=== PATIENT | male | born 1955 | race Two or more races ===

== ENCOUNTER 2018-06-22 03:38 | Inpatient (IN) | payer OTHER, BC ==
[2018-06-22] VITALS (8 sets, daily range): BP systolic 98–179; BP diastolic 58–107
[~2018-06-22] VITALS: Ht 172.7 cm; Wt 76.5 kg
[2018-06-22] MEDS ORDERED: ALBUTEROL SULF 2.5 MG/0.5ML(0.5%) NEB SOLN NEB ONE (03:45)
[2018-06-22] MEDS ORDERED: SODIUM CHLORIDE 0.9% 1,000 ML IV ONE (03:45)
[2018-06-22] MEDS ORDERED: IPRATROPIUM BROM 0.5 MG/2.5ML INH SOL NEB ONE (03:45)
[2018-06-22] MEDS ORDERED: methylPREDNISolone SOD SUCC 125 MG/2 ML VL IV ONE ×2 (03:45→09:15)
[2018-06-22 04:31] LABS: Basophils # (auto) 0.1 uL; Basophils % (auto) 0.4 % (0.0-2.0); Eosinophils # (auto) 0 uL; Hematocrit 45.8 % (41.0-53.0); Hemoglobin 15.3 g/dL (13.5-17.5); Lymphocytes # (auto) 0.4 uL; Lymphocytes % (auto) 2.9 % (10.0-50.0); Mean Corpuscular Hgb Conc. 33.4 g/dL (32.0-36.0); Mean Corpuscular Volume 92.8 fL (80.0-100.0); Monocytes # (auto) 1.5 uL; Neutrophils # (auto) 12.6 uL; Neutrophils % (auto) 86.7 % (37.0-80.0); Platelet Count (auto) 85 10^3/uL (140-450); Red Blood Cells 4.94 10^6/uL (4.5-5.90); Red Cell Distribution Width 14.2 % (11.8-14.3); White Blood Cell 14.6 10^3/uL (4.4-10.8)
[2018-06-22 04:35] LABS: Albumin 3.1 g/dL (3.4-5.0); Anion Gap 15 (5-15); Blood Urea Nitrogen 40 mg/dL (7-18); Carbon Dioxide 18 mmol/L (21-32); Chloride 101 mmol/L (98-107); Glucose 138 mg/dL (74-106); Potassium 3.9 mmol/L (3.5-5.1); Sodium 134 mmol/L (136-145)
[2018-06-22 04:41] LABS: Alanine Aminotransferase 30 U/L (16-61); Alkaline Phosphatase 170 U/L (45-117); Aspartate Aminotransferase 35 U/L (15-37); BUN/Creatinine Ratio 21.1; Bilirubin, Total 1.7 mg/dL (0.2-1.0); GFR African American 47 mL/min; GFR Non-African American 38 mL/min; Total Protein 7.1 g/dL (6.4-8.2)
[2018-06-22] MEDS ORDERED: ALBUTEROL SULF 2.5 MG/0.5ML(0.5%) NEB SOLN NEB PRN (06:30)
[2018-06-22] MEDS ORDERED: HYDROcodone-ACET 5/325MG TAB PO PRN (06:30)
[2018-06-22] MEDS ORDERED: TEMAZEPAM 15 MG CAP PO PRN (06:30)
[2018-06-22] MEDS ORDERED: cefTRIAXone 1GM/50ML D5W 50 ML IV ONE (06:30)
[2018-06-22] MEDS ORDERED: guaiFENesin-DM 100/10mg/5ml SYR PO PRN (06:30)
[2018-06-22] MEDS ORDERED: OSELTAMIVIR 75 MG CAP PO ONE (06:30)
[2018-06-22] MEDS ORDERED: ACETAMINOPHEN 325 MG TAB PO PRN (06:30)
[2018-06-22] MEDS ORDERED: DEXTROSE (50%) 50ML SYRG IV PRN (06:30)
[2018-06-22] MEDS ORDERED: AZITHROMYCIN 500MG/ 250ML 250 ML IV ONE (07:30)
[2018-06-22 08:00] LABS: Lactic Acid w/Reflex 4.2 mmol/L (0.4-2.0)
[2018-06-22] MEDS ORDERED: IPRATROPIUM BROM 0.5 MG/2.5ML INH SOL NEB PRN (09:15)
[2018-06-22] MEDS ORDERED: LORazepam 2MG/ML-1ML VIAL ONE (09:51)
[2018-06-22] MEDS: methylPREDNISolone SOD SUCC 125 MG/2 ML VL IV SCH ×2 (10:00→22:09)
[2018-06-22] MEDS ORDERED: LISINOPRIL 5 MG TAB PO SCH (10:00)
[2018-06-22] MEDS ORDERED: LEVOFLOXACIN 500MG 100 ML IV ONE (10:00)
[2018-06-22] MEDS ORDERED: HCTZ 25 MG TAB PO SCH (10:00)
[2018-06-22] MEDS ORDERED: PANTOPRAZOLE 40 MG TAB PO SCH (10:00)
[2018-06-22] MEDS ORDERED: ETOMIDATE (2MG/ML) 20ML VIAL IV ONE (10:02)
[2018-06-22] MEDS: NOREPINEPHRINE 8 MG/250ML KIT 250 ML IV SCH (10:02)
[2018-06-22] MEDS ORDERED: SUCCINYLCHOLINE CHLORIDE 20 MG/ML 10ML VIAL IV ONE (10:02)
[2018-06-22] MEDS ORDERED: MIDAZOLAM DRIP 50 mg/50mL 50 ML IV ONE (10:06)
--- NOTE | 2018-06-22 10:10 | NUR ---
Respiratory note: PATIENT WAS INTUBATED AT 1006 FOR AIRWAY PROTECTION AND INCREASED WORK OF BREATHING. PLACED PATIENT ON VENTILATOR AC 16/600/+5/50% PER DR. BENTON. PATIENT WAS INTUBATED WITH AN 8.0 AND SECURED AT 24 CM AT THE LIP VIA DUANE. ABG TO BE DRAWN IN ONE HOUR AND SPUTUM SAMPLE TO BE COLLECTED. WILL CONTINUE TO MONITOR PATIENT.
[2018-06-22] MEDS: MIDAZOLAM DRIP 50 mg/50mL 50 ML IV SCH ×2 (10:25→13:33)
[2018-06-22] MEDS: PROPOFOL 100 ML IV SCH ×3 (10:25→17:04)
[2018-06-22 11:17] LABS: Urine Bacteria FEW /hpf (None Seen); Urine Blood 1+ /uL (Negative); Urine Mucus FEW (None Seen); Urine Specific Gravity 1.015 (1.001-1.035); Urine WBC 9 /hpf (0 - 3)
[2018-06-22] MEDS ORDERED: fentaNYL Drip 2500mCg/250mlNS 250 ML IV ONE (11:23)
[2018-06-22] MEDS: fentaNYL Drip 2500mCg/250mlNS 250 ML IV SCH (11:38)
[2018-06-22] MEDS: InsuLIN REG 1unit/0.01ml Soln (100units/ml) SC SCH ×2 (11:41→16:47)
[2018-06-22] MEDS: ACCU-CHEK COMFORT CURVE STRIP VI SCH ×3 (11:41→23:56)
[2018-06-22] MEDS ORDERED: OSELTAMIVIR 30MG/2ML ORAL SUSP NG SCH (11:48)
[2018-06-22] MEDS ORDERED: ALBUTEROL SULF 2.5 MG/0.5ML(0.5%) NEB SOLN NEB SCH (12:00)
[2018-06-22] MEDS ORDERED: IPRATROPIUM BROM 0.5 MG/2.5ML INH SOL NEB SCH (12:00)
[2018-06-22] MEDS ORDERED: SODIUM BICARBONATE 8.4 % INJ 50ML VIAL IV ONE (13:00)
--- NOTE | 2018-06-22 13:00 | NUR ---
Respiratory note: SPOKE TO DR. OSMAN IN REGARDS TO ABG POST VENTILATOR CHANGES. PER DR. OSMAN KEEP PATIENT SPO2 ABOVE 92%. I TITRATED PATIENT'S FIO2 TO 60%. WILL CONTINUE TO MONITOR PATIENT.
[2018-06-22] MEDS: IPRATROPIUM BROM 0.5 MG/2.5ML INH SOL NEB SCH ×3 (15:45→21:52)
[2018-06-22] MEDS: ALBUTEROL SULF 2.5 MG/0.5ML(0.5%) NEB SOLN NEB SCH ×3 (15:45→21:52)
[2018-06-22] MEDS ORDERED: ACETAMINOPHEN 650 mg PER 20 mL UD GT PRN (16:00)
[2018-06-22] MEDS ORDERED: OSELTAMIVIR 30 MG CAP PO SCH (22:00)
[2018-06-23] VITALS (24 sets, daily range): BP systolic 88–119; BP diastolic 45–80
[2018-06-23] MEDS: InsuLIN REG 1unit/0.01ml Soln (100units/ml) SC SCH ×4 (00:16→18:13)
[2018-06-23 05:54] LABS: Albumin 2.6 g/dL (3.4-5.0); Calcium 8.9 mg/dL (8.5-10.1); Potassium 3.9 mmol/L (3.5-5.1)
[2018-06-23 06:00] LABS: BUN/Creatinine Ratio 35.6; Bilirubin, Total 1.1 mg/dL (0.2-1.0); Total Protein 6.8 g/dL (6.4-8.2)
[2018-06-23] MEDS: ACCU-CHEK COMFORT CURVE STRIP VI SCH ×3 (06:00→18:10)
[2018-06-23 06:03] LABS: INR 0.94 (0.9-1.15); Partial Thromboplastin Time 34.6 sec (23.78-33.04); Prothrombin Time 10.1 sec (9.27-12.13)
[2018-06-23 06:08] LABS: Basophils # (auto) 0 uL; Basophils % (auto) 0.1 % (0.0-2.0); Eosinophils # (auto) 0 uL; Hematocrit 40.5 % (41.0-53.0); Hemoglobin 13.4 g/dL (13.5-17.5); Lymphocytes # (auto) 0.3 uL; Lymphocytes % (auto) 2.1 % (10.0-50.0); Mean Corpuscular Hemoglobin 30.7 pg (28.0-32.0); Mean Corpuscular Hgb Conc. 33.1 g/dL (32.0-36.0); Mean Corpuscular Volume 92.7 fL (80.0-100.0); Monocytes # (auto) 0.7 uL; Monocytes % (auto) 4.9 % (0.0-12.0); Neutrophils # (auto) 12.6 uL; Neutrophils % (auto) 92.9 % (37.0-80.0); Platelet Count (auto) 131 10^3/uL (140-450); Red Blood Cells 4.37 10^6/uL (4.5-5.90); Red Cell Distribution Width 14.2 % (11.8-14.3); White Blood Cell 13.6 10^3/uL (4.4-10.8)
[2018-06-23] MEDS: ALBUTEROL SULF 2.5 MG/0.5ML(0.5%) NEB SOLN NEB SCH ×5 (07:10→22:30)
[2018-06-23] MEDS: IPRATROPIUM BROM 0.5 MG/2.5ML INH SOL NEB SCH ×5 (07:10→22:30)
[2018-06-23] MEDS: PANTOPRAZOLE 40 MG/10 ML VIAL IV SCH (09:07)
[2018-06-23] MEDS: methylPREDNISolone SOD SUCC 125 MG/2 ML VL IV SCH ×2 (09:07→22:00)
[2018-06-23] MEDS: OSELTAMIVIR 30MG/2ML ORAL SUSP NG SCH ×2 (09:44→22:00)
[2018-06-23] MEDS ORDERED: LEVOFLOXACIN 250MG 50 ML IV SCH (10:00)
[2018-06-23] MEDS: NOREPINEPHRINE 8 MG/250ML KIT 250 ML IV SCH (10:10)
[2018-06-23] MEDS ORDERED: LEVOFLOXACIN 250MG 50 ML IV ONE (11:00)
[2018-06-23] MEDS: fentaNYL Drip 2500mCg/250mlNS 250 ML IV SCH (11:16)
--- NOTE | 2018-06-23 11:50 | NUR ---
WOUND CARE NOTE: Wound care in to see patient for skin integrity monitoring due to low Luis score of 12 and intubation status, putting patient to high risk for skin breakdown. Patient is 62 y/o male with admitting diagnosis of Pneumonia, Influenza. Patient is resting in hospital bed in ED Rm.#6. Patient is intubated, sedated and mechanically ventilated. Patient appears to be in no pain using Mota Valencia Faces Pain Scale. Skin assessment done with assistance of ED nurse, ALFONSO Elizabeth. No wound noted, no non-blanchable redness over bony prominences noted. Repositioned patient for comfort facing his Lt side, redistributed pressure points with pillows. Patient tolerated well. ALFONSO Elizabeth at bedside. RECOMMENDATION: BID/PRN cleaning and application of Barrier cream to sacrum/perineum as preventative per MD order, dietary consult for low Luis score , frequent turning and repositioning schedule as condition permits, redistribute pressure points with pillows,elevate heels on pillows, continue monitoring by wound care while patient is mechanically ventilated.
[2018-06-23] MEDS: PROPOFOL 100 ML IV SCH ×2 (13:20→21:00)
--- NOTE | 2018-06-23 19:45 | NUR ---
PATIENT ARRIVED FROM ER IN BED. ETT BAGGED. SLIDER BOARD USED TO PLACE PATIENT INTO AN ICU BED. EKG LEADS ON. BLOOD PRESSURE TAKEN. O2 SATURATION ATTACHED. HARMON IN DOWN DRAIN POSITION. ON DIPRIVAN AT 50 MCG/KG/MIN AND LEVOPHED AT 1 MCG/KG /MIN. NSR WITHOUT ECTOPY. BLOOD PRESSURE SYSTOLIC 91. O2 SATURATION 96. SMALL AMOUNT OF AIR PLACED IN CUFF. ON CONTACT ISOLATION: + FOR INFLUENZA A.
--- NOTE | 2018-06-23 21:00 | NUR ---
NOT MOVING EXTREMITIES. NO BLINK, GAG OR COUGH. DECREASING THE DIPRIVAN. PUPILS ARE 2 AND SLUGGISH. REPOSITIONED TO RIGHT SIDE. DAUGHTER AT BEDSIDE. SON IN LAW AT BEDSIDE. HARMON BAG: CLEAR YELLOW LIQUID. SEDIMENT LINES THE TUBING. NSR WITHOUT ECTOPY. B/P STABLE. HAD TO INCREASE THE LEVOPHED TO 2 MCG/MIN. ABDOMEN ROUND AND SOFT. NGT RESIDUAL CHECKED. 20CC OF A BROWN/RED LIQUID. NGT LEFT NARE. SUCTIONED ETT FOR NO SECRETIONS. ALL PULSES PALPABLE. FEET ARE WARM. SCDS ON.
--- NOTE | 2018-06-23 22:00 | NUR ---
TRIED MOVING THE DIPRIVAN TO 45 MCG, BUT HE STARTED DOUBLE STACKING HIS BREATHS. PUT HIM BACK ON 50 MCG. NSR WITHOUT ECTOPY. HARMON BAG HAS A LARGE AMOUNT OF URINE. IV SITE SHOWS NO REDNESS OR SWELLING. PULSES PALPABLE. EXTREMITIES WARM. LOW GRADE FEVER.
[2018-06-24] VITALS (99 sets, daily range): BP systolic 86–148; BP diastolic 54–89
--- NOTE | 2018-06-24 | NUR ---
FAMILY MEMBERS IN ROOM. THE DOUBLE STACKING IS MUCH LESS. ORDER NOTED FOR SIMV TODAY. OVERBREATHING THE VENTILATOR 2-3 BREATHS. SINUS RHYTHM WITHOUT ECTOPY. ABDOMEN SOFT. NGT RESIDUAL 70CC OF A BROWN/RED LIQUID. IVS SHOW NO REDNESS OR SWELLING.
[2018-06-24] MEDS: IPRATROPIUM BROM 0.5 MG/2.5ML INH SOL NEB SCH ×6 (02:00→22:21)
[2018-06-24] MEDS: ALBUTEROL SULF 2.5 MG/0.5ML(0.5%) NEB SOLN NEB SCH ×6 (02:00→22:22)
--- NOTE | 2018-06-24 02:00 | NUR ---
REPOSITIONED. NSR - ST WITHOUT ECTOPY. LOW GRADE FEVER. NO BLINK, GAG, OR COUGH. NO MOVEMENT OF EXTREMITIES.IV SHOWS NO REDNESS OR SWELLING.
--- NOTE | 2018-06-24 03:00 | NUR ---
LORENZA AND AM LABS DRAWN
--- NOTE | 2018-06-24 04:00 | NUR ---
NO BLINK, GAG, OR COUGH. PUPILS 2 AND REACT. ORALLY: A SMALL AMOUNT OF RED LIQUID.RIJ TLC IS CLEAN AND DRY. NO REDNESS OR SWELLING AT SITE. LUNGS CLEAR. NOTHING SUCTIONED FROM THE ETT ALL NIGHT. LEFT NARE NGT IS CLAMPED. RESIDUAL CHECKED AND IS STILL A BROWN /RED COLOR. ABDOMEN SOFT. NO BOWEL SOUNDS. NO BM. HARMON PUT OUT 1500CC. ALL PULSES STRONG AND PALPABLE. DOES NOT WITHDRAW TO PAINFUL STIMULI. NO SKIN ISSUES. TEMP IS DRIFTING DOWN TO NORMAL. FIO2 40% AFTER THE ABG RESULT.
[2018-06-24 04:15] LABS: Basophils # (auto) 0 uL; Eosinophils # (auto) 0 uL; Hematocrit 40.2 % (41.0-53.0); Hemoglobin 13.6 g/dL (13.5-17.5); Lymphocytes # (auto) 0.4 uL; Lymphocytes % (auto) 2.8 % (10.0-50.0); Mean Corpuscular Hemoglobin 31.3 pg (28.0-32.0); Mean Corpuscular Hgb Conc. 33.9 g/dL (32.0-36.0); Mean Corpuscular Volume 92.3 fL (80.0-100.0); Monocytes # (auto) 0.7 uL; Monocytes % (auto) 5.1 % (0.0-12.0); Neutrophils # (auto) 13.3 uL; Neutrophils % (auto) 92.1 % (37.0-80.0); Nucleated Red Blood Cells % 0.4 %; Platelet Count (auto) 148 10^3/uL (140-450); Red Blood Cells 4.36 10^6/uL (4.5-5.90); Red Cell Distribution Width 14.3 % (11.8-14.3); White Blood Cell 14.4 10^3/uL (4.4-10.8)
[2018-06-24 04:25] LABS: BUN/Creatinine Ratio 44.8; Calcium 8.8 mg/dL (8.5-10.1); Magnesium 3.1 mg/dL (1.6-2.6)
[2018-06-24] MEDS: InsuLIN REG 1unit/0.01ml Soln (100units/ml) SC SCH ×4 (06:03→18:11)
[2018-06-24] MEDS: ACCU-CHEK COMFORT CURVE STRIP VI SCH ×4 (06:03→17:57)
--- NOTE | 2018-06-24 06:07 | NUR ---
NO CHANGE IN STATUS.
[2018-06-24] MEDS: PROPOFOL 100 ML IV SCH ×3 (06:32→14:37)
--- NOTE | 2018-06-24 06:51 | NUR ---
PLACED ON SIMV. RR 20. DECREASED THE DIPRIVAN TO 45 MCG.
--- NOTE | 2018-06-24 07:30 | NUR ---
Opening Shift Note: Report received from Hoda HAMILTON. Assumed care of patient, intubated and sedated nixnovan 45mcg..on SIMV and if tolerating plan is to CPAP and titrate off sedation. No S/S of distress/SOB or pain. Instructed family on POC, will continue to monitor for changes Q1hr and PRN.
--- NOTE | 2018-06-24 09:00 | NUR ---
Family at bedside. Explained POC.
[2018-06-24] MEDS: PANTOPRAZOLE 40 MG/10 ML VIAL IV SCH (10:00)
[2018-06-24] MEDS: methylPREDNISolone SOD SUCC 125 MG/2 ML VL IV SCH ×2 (10:00→22:00)
[2018-06-24] MEDS ORDERED: LEVOFLOXACIN 500MG 100 ML IV SCH (10:00)
--- NOTE | 2018-06-24 10:30 | NUR ---
Endorsed care to ALFONSO Marquez.
--- NOTE | 2018-06-24 11:10 | NUR ---
NUTRITION CONSULT/ASSESSMENT NOTES Please refer to link notes of nutrition screen form filed under the intervention section of the plan of care for further details. Est. Needs: 1900 kcal to 2300 kcal (25-30 kcal/kgBW), 61 gms to 77 gms pro (0.8-1.0 gms/kgBW). Will continue to monitor pertinent labs and reassess nutrient need prn Thank you for this consult. Addendum: 06/24/18 at [address] Amended: Links added.
--- NOTE | 2018-06-24 11:15 | NUR ---
OPEN RECEIVED REPORT FROM NIGHT RN. ASSUMED CARE OF ICU PATIENT, FULL CODE STATUS. PATIENT SEDATED ON VENT. DIPRIVAN GTT INCREASED TO 45 MCG/KG/MIN AT THIS TIME DUE TO PATIENT HAVING FACIAL GRIMACING AT THIS TIME. PATIENT ON VENT SIMV MODE WITH FIO2 AT 40%. LEFT ONTIVEROS NGT CLAMPED AT THIS TIME, PLACEMENT VERIFIED. HARMON TO GRAVITY. SKIN INTACT TO SACRAL AREA, PINK BLANCHABLE. RECTAL TEMP. PROBE PLACED AT THIS TIME. CURRENT TEMP 100.8. COOLING MEASURES APPLIED TO PATIENT AT THIS TIME. SCD'S TO ROSIE LE. RIGHT IJ TLC PATENT AND FLUSHED AT THIS TIME. FAMILY AT BEDSIDE. UPDATED ON PT'S STATUS AND CURRENT POC. WILL CONTINUE TO TURN PATIENT Q2HRS AND PRN. OFF LOADING PRESSURE AREAS WITH PILLOWS. CONTINUE CARE.
[2018-06-24] MEDS: OSELTAMIVIR 30MG/2ML ORAL SUSP NG SCH ×2 (12:57→22:00)
[2018-06-24] MEDS: NOREPINEPHRINE 8 MG/250ML KIT 250 ML IV SCH (12:57)
[2018-06-24] MEDS: fentaNYL Drip 2500mCg/250mlNS 250 ML IV SCH (14:36)
[2018-06-24] MEDS: MIDAZOLAM DRIP 50 mg/50mL 50 ML IV SCH (14:36)
--- NOTE | 2018-06-24 19:56 | NUR ---
PT ADMITTED WITH THE FLU. ATTEMPTED BIPAP IN ER AND THEN INTUBATED THE PATIENT. PT IS CURRENTLY ON SIMV OF 12. DIPRIVAN IS AT 45MCG. NOW HAS A COUGH, GAG AND COUGH. NOTHING SUCTIONED FROM LUNGS AND YET THE CXR IS WORSE. ABDOMEN SOFT. NGT LEFT NARE IS CLAMPED. NPO. HARMON DRAINING RITA LIQUID TO DOWN DRAIN BAG. RIJ TLC, SITE IS CLEAN AND DRY WITH A CURRENT DRESSING. CONTINUES TO HAVE THE 20G IN THE RIGHT WRIST. ORDERS FOR TRANSFER TO [facility] SOON A BED BECOMES AVAILABLE. SCDS ON PATIENT.
--- NOTE | 2018-06-24 23:00 | NUR ---
[facility] CALLED WITH A BED ASSIGNMENT. DR ADONIS BRONSON CALLED FOR THE ORDER TO TRANSFER . ORDER RECEIVED AND PLACED IN COMPUTER. DAUGHTER GERARDO INFORMED AND SIGNED TRANSFER FORM. SON[facility] CALLED. ETA 0600. SUCTIONED ETT IN THE PATIENT FOR PINK TINGED SECRETIONS. SEDATION VACATION: PATIENT WOKE UP, MOVED ALL EXTREMITIES. OPENED EYES. HEART RATE 90. RR 32. PLACED PATIENT BACK ON SEDATION.
[2018-06-25] VITALS (34 sets, daily range): BP systolic 99–160; BP diastolic 67–101
--- NOTE | 2018-06-25 | NUR ---
PAPERWORK READY FOR TRANSPORT TO [facility]. ETA FOR THE AMB[facility]ANCE COMPANY : 0600. REPOSITIONED. ORAL CARE. SUCTIONED ETT FOR A SMALL AMOUNT OF PINK SECRETIONS. LUNGS CLEAR. ABDOMEN ROUND AND SOFT. URINE: DARK RITA WITH SEDIMENT. ALL PULSES PALPABLE. + GAG, COUGH AND BLINK. NSR WITHOUT ECTOPY. IV SHOWS NO REDNESS OR SWELLING
--- NOTE | 2018-06-25 02:00 | NUR ---
DAUGHTER HERE VISITING. AWARE OF TRANSFER AROUND 0600 TO [facility]. NSR WITHOUT ECTOPY. HR IN THE 60-70S. NO ECTOPY. REPOSITIONED TO HIS BACK. BOOSTED UP IN BED. ABDOMEN LARGE AND ROUND, SOFT. FLATUS. SUCTIONED ETT FOR A VERY SMALL AMOUNT OF PINK TINGED SECRETIONS. VSS.
[2018-06-25] MEDS: ALBUTEROL SULF 2.5 MG/0.5ML(0.5%) NEB SOLN NEB SCH ×2 (02:35→06:07)
[2018-06-25] MEDS: IPRATROPIUM BROM 0.5 MG/2.5ML INH SOL NEB SCH ×2 (02:35→06:07)
--- NOTE | 2018-06-25 03:21 | NUR ---
TURNED OFF LEVOPHED. SYSTOLIC HAS CONSISTENTLY BEEN 120-130. NO ORAL SECRETIONS. ORAL CARE DONE. AM LABS DRAWN.
[2018-06-25 03:51] LABS: Hematocrit 43.8 % (41.0-53.0); Hemoglobin 14.8 g/dL (13.5-17.5); Mean Corpuscular Hemoglobin 31.1 pg (28.0-32.0); Mean Corpuscular Hgb Conc. 33.7 g/dL (32.0-36.0); Mean Corpuscular Volume 92.3 fL (80.0-100.0); Platelet Count (auto) 103 10^3/uL (140-450); Red Blood Cells 4.74 10^6/uL (4.5-5.90); Red Cell Distribution Width 14.3 % (11.8-14.3)
--- NOTE | 2018-06-25 04:00 | NUR ---
ABG DONE. REPOSITIONED TO THE RIGHT SIDE. LUNGS CLEAR. JUST A VERY SMALL AMOUNT OF PINK TINGED SECRETIONS FROM ETT. NO ORAL SECRETIONS. NGT RESIDUAL 5CC OF COFFEE GROUND. ABDOMEN LARGE, ROUND, SOFT. NO PERIPHERAL EDEMA
[2018-06-25 04:12] LABS: Calcium 8.7 mg/dL (8.5-10.1); Magnesium 2.7 mg/dL (1.6-2.6); Potassium 4.2 mmol/L (3.5-5.1)
[2018-06-25 04:19] LABS: Basophils % (manual) 0 (0.0-2.0); Blast Cells 0; Eosinophils % (manual) 0 (0-7); Metamyelocytes % 0; Promyelocytes % 0; Reactive Lymphocytes 0
--- NOTE | 2018-06-25 05:00 | NUR ---
[facility] BATH
[2018-06-25] MEDS: InsuLIN REG 1unit/0.01ml Soln (100units/ml) SC SCH ×2 (05:47)
[2018-06-25] MEDS: ACCU-CHEK COMFORT CURVE STRIP VI SCH ×2 (05:47)
[2018-06-25] MEDS: PROPOFOL 100 ML IV SCH (06:05)
[2018-06-25 06:19] LABS: Band Neutrophils % (manual) 12; Lymphocytes % (manual) 10 (10.0-50.0); Monocytes % (manual) 3 (0-12); Myelocytes % 2
--- NOTE | 2018-06-25 06:35 | NUR ---
REPORT TO [facility] RN
--- NOTE | 2018-06-25 06:53 | NUR ---
REPORT TO [facility].
--- NOTE | 2018-06-25 06:55 | NUR ---
[facility] PERSONNEL IN ROOM PREPARING THE PATIENT FOR TRANSPORT
--- NOTE | 2018-06-25 07:20 | NUR ---
[facility] PERSONNEL NOW HAVE THE PATIENT ON THE GURNEY AND ARE LEAVING
== END 2018-06-24 23:20 | disposition short-term general hospital (02) | DRG 208 ==
LOC: EDBD 03:38 → ER 03:42 → OVERFLOW 06:25 → ICU WEST 06-23 19:34
PROVIDERS: ADMIT Nurse Practitioner; ATTEND Nurse Practitioner
PROC: 02HV33Z Insertion of Infusion Device into Superior Vena Cava, Percutaneous Approach (ICD-10-PCS; principal; 2018-06-22)
PROC: 5A1945Z Respiratory Ventilation, 24-96 Consecutive Hours (ICD-10-PCS; 2018-06-22)
PROC: 0BH17EZ Insertion of Endotracheal Airway into Trachea, Via Natural or Artificial Opening (ICD-10-PCS; 2018-06-22)
PROC: 5A09357 Assistance with Respiratory Ventilation, Less than 24 Consecutive Hours, Continuous Positive Airway Pressure (ICD-10-PCS; 2018-06-22)
DX: J10.08 Influenza due to other identified influenza virus with other specified pneumonia (principal); J96.00 Acute respiratory failure, unspecified whether with hypoxia or hypercapnia; J44.0 Chronic obstructive pulmonary disease with (acute) lower respiratory infection; I10 Essential (primary) hypertension; K74.60 Unspecified cirrhosis of liver; J84.115 Respiratory bronchiolitis interstitial lung disease; F17.210 Nicotine dependence, cigarettes, uncomplicated; E11.9 Type 2 diabetes mellitus without complications; J10.1 Influenza due to other identified influenza virus with other respiratory manifestations
CPT/HCPCS: 36415; 36600; 71045; 80048; 80053; 81001; 82805; 82962; 83605; 83735; 83880; 84484; 85007; 85025; 85027; 85610; 85730; 87070; 87081; 87205; 87804; 93005; 94002; 94003; 94640; 94660; 96361; 96365; 96367; 99291; 99292; A6257; C9113; G0378; G9035; J0330; J0696; J1815; J1956; J2250; J2704